=== PATIENT | female | born 1980 | race African-American/Black ===

== ENCOUNTER 2017-10-21 10:48 | Emergency (ER) | payer OTHER ==
[2017-10-21] MEDS: KETOROLAC 30 MG INJ IV (11:10)
[2017-10-21 11:49] LABS: ADD MAN DIFF? NO
[2017-10-21 11:51] LABS: BASOPHILS % 0.6 % (0.0-2.0); EOSINOPHILS # 0.1 10^3/ul (0.0-0.5); EOSINOPHILS % 2.4 % (0.0-7.0); HEMATOCRIT 32.8 % (37.0-47.0); HEMOGLOBIN 11.8 g/dl (12.0-16.0); LYMPHOCYTES # 1.5 10^3/ul (0.8-2.9); LYMPHOCYTES % 45.9 % (15.0-51.0); MEAN CORPUSCULAR HEMOGLOBIN 32.9 pg (29.0-33.0); MEAN CORPUSCULAR VOLUME 91.4 fl (82.0-101.0); MONOCYTE # 0.2 10^3/ul (0.3-0.9); MONOCYTES % 5.2 % (0.0-11.0); NEUTROPHIL # 1.5 10^3/ul (1.6-7.5); NEUTROPHILS % 45.9 % (39.0-77.0); PLATELET COUNT 217 10^3/UL (140-415); RED BLOOD COUNT 3.59 10^6/ul (4.20-5.40); RED CELL DISTRIBUTION WIDTH 11.9 % (11.5-14.5)
[2017-10-21 11:51] LABS: WHITE BLOOD COUNT 3.3 10^3/ul (4.8-10.8)
[2017-10-21 11:59] LABS: ADD UMIC YES; UR ASCORBIC ACID NEGATIVE (NEGATIVE); UR BILIRUBIN (Dip) NEGATIVE (NEGATIVE); UR BLOOD (Dip) 3+ mg/dL (NEGATIVE); UR CLARITY SLIGHTLY CLOUDY (CLEAR); UR COLOR YELLOW (YELLOW); UR GLUCOSE (Dip) NEGATIVE (NEGATIVE); UR KETONES (Dip) NEGATIVE (NEGATIVE); UR LEUKOCYTE ESTERASE (Dip) NEGATIVE Leu/ul (NEGATIVE); UR MUCUS FEW /HPF (NONE SEEN); UR NITRITE (Dip) NEGATIVE (NEGATIVE); UR RBC 2 /HPF (0-5); UR SPECIFIC GRAVITY (Dip) 1.015 (1.003-1.030); UR SQUAMOUS EPITHELIAL CELL FEW /HPF (FEW); UR TOTAL PROTEIN (Dip) NEGATIVE (NEGATIVE); UR UROBILINOGEN (Dip) NEGATIVE (NEGATIVE); UR WBC 1 /HPF (0-5)
[2017-10-21 12:11] LABS: ALANINE AMINOTRANSFERASE 39 IU/L (13-69); ALBUMIN 4.3 g/dl (3.3-4.9); ALBUMIN/GLOBULIN RATIO 1.26; ALKALINE PHOSPHATASE 75 IU/L (42-121); ANION GAP 16 (8-16); ASPARTATE AMINO TRANSFERASE 28 IU/L (15-46); BILIRUBIN,INDIRECT 0.3 mg/dl (0-1.1); BILIRUBIN,TOTAL 0.3 mg/dl (0.2-1.3); BLOOD UREA NITROGEN 7 mg/dl (7-20); CARBON DIOXIDE 26 mmol/L (21-31); CHLORIDE 108 mmol/L (97-110); CREATININE 0.68 mg/dl (0.44-1.00); GLUCOSE 75 mg/dl (70-220); LIPASE 50 U/L (23-300); POTASSIUM 3.9 mmol/L (3.5-5.1); SODIUM 146 mmol/L (135-144); TOTAL PROTEIN 7.7 g/dl (6.1-8.1)
== END 2017-10-21 12:55 | disposition home or self-care (01) ==
LOC: FTE 10:48
DX: N93.9 Abnormal uterine and vaginal bleeding, unspecified (principal); J45.909 Unspecified asthma, uncomplicated; Z79.84 Long term (current) use of oral hypoglycemic drugs
CPT/HCPCS: 36415; 76830; 76856; 80053; 81001; 81025; 83690; 85025; 96374; 99285-25

== ENCOUNTER 2018-06-08 17:53 | Emergency (ER) | payer OTHER ==
[2018-06-08] MEDS: TETRACAINE 0.5% 4 ML OPH BOTH EYES (19:21)
== END 2018-06-08 19:27 | disposition home or self-care (01) ==
LOC: FTE 17:53
DX: H57.89 Other specified disorders of eye and adnexa (principal); J45.909 Unspecified asthma, uncomplicated; Z79.84 Long term (current) use of oral hypoglycemic drugs
CPT/HCPCS: 99283; Z7502

== ENCOUNTER 2018-06-09 01:01 | Emergency (ER) | payer OTHER ==
[2018-06-09] MEDS: IBUPROFEN 800 MG TAB PO (01:14)
[2018-06-09] MEDS: FLUORESCEIN STRIP BOTH EYES (01:17)
[2018-06-09] MEDS: TETRACAINE 0.5% 4 ML OPH BOTH EYES (01:17)
== END 2018-06-09 01:32 | disposition home or self-care (01) ==
LOC: FTE 01:01
DX: H16.001 Unspecified corneal ulcer, right eye (principal); J45.909 Unspecified asthma, uncomplicated; E11.9 Type 2 diabetes mellitus without complications; Z79.84 Long term (current) use of oral hypoglycemic drugs
CPT/HCPCS: 99283; Z7502

== ENCOUNTER 2019-02-28 18:06 | Emergency (ER) | payer OTHER ==
[2019-02-28] MEDS: SOD CHLORIDE 0.9% 1,000 ML IV (19:45)
[2019-02-28] MEDS: morphine 2 MG INJ IV (19:45)
[2019-02-28] MEDS: ONDANSETRON 4 MG INJ IV (19:45)
[2019-02-28] MEDS: KETOROLAC 15 MG INJ IV (19:52)
[2019-02-28 20:03] LABS: ADD MAN DIFF? NO
[2019-02-28 20:12] LABS: ADD UMIC NO; UR ASCORBIC ACID NEGATIVE (NEGATIVE); UR BILIRUBIN (Dip) NEGATIVE (NEGATIVE); UR BLOOD (Dip) NEGATIVE (NEGATIVE); UR CLARITY CLEAR (CLEAR); UR COLOR STRAW (YELLOW); UR GLUCOSE (Dip) NEGATIVE (NEGATIVE); UR KETONES (Dip) NEGATIVE (NEGATIVE); UR LEUKOCYTE ESTERASE (Dip) NEGATIVE Leu/ul (NEGATIVE); UR NITRITE (Dip) NEGATIVE (NEGATIVE); UR SPECIFIC GRAVITY (Dip) 1.006 (1.003-1.030); UR TOTAL PROTEIN (Dip) NEGATIVE (NEGATIVE); UR UROBILINOGEN (Dip) NEGATIVE (NEGATIVE)
[2019-02-28 20:15] LABS: BASOPHILS % 0.4 % (0.0-2.0); EOSINOPHILS # 0.1 10^3/ul (0.0-0.5); EOSINOPHILS % 1.8 % (0.0-7.0); HEMATOCRIT 32.7 % (37.0-47.0); HEMOGLOBIN 11.4 g/dl (12.0-16.0); LYMPHOCYTES # 2.3 10^3/ul (0.8-2.9); LYMPHOCYTES % 44.2 % (15.0-51.0); MEAN CORPUSCULAR HEMOGLOBIN 32.5 pg (29.0-33.0); MEAN CORPUSCULAR HGB CONC 34.9 g/dl (32.0-37.0); MEAN CORPUSCULAR VOLUME 93.2 fl (82.0-101.0); MEAN PLATELET VOLUME 10.3 fl (7.4-10.4); MONOCYTE # 0.3 10^3/ul (0.3-0.9); MONOCYTES % 5.7 % (0.0-11.0); NEUTROPHIL # 2.5 10^3/ul (1.6-7.5); NEUTROPHILS % 47.7 % (39.0-77.0); PLATELET COUNT 247 10^3/UL (140-415); RED BLOOD COUNT 3.51 10^6/ul (4.20-5.40); RED CELL DISTRIBUTION WIDTH 12.9 % (11.5-14.5)
[2019-02-28 20:15] LABS: WHITE BLOOD COUNT 5.1 10^3/ul (4.8-10.8)
[2019-02-28 20:32] LABS: ANION GAP 7 (5-13); BLOOD UREA NITROGEN 11 mg/dl (7-20); CALCIUM 9.5 mg/dl (8.4-10.2); CARBON DIOXIDE 25 mmol/L (21-31); CHLORIDE 107 mmol/L (97-110); CREATININE 0.73 mg/dl (0.44-1.00); Estimated GFR > 60 mL/min (>60); GLUCOSE 83 mg/dl (70-220); LIPASE 120 U/L (23-300); POTASSIUM 3.8 mmol/L (3.5-5.1); SODIUM 139 mmol/L (135-144)
== END 2019-02-28 21:51 | disposition home or self-care (01) ==
LOC: FTE 18:06
DX: O26.891 Other specified pregnancy related conditions, first trimester (principal); R10.2 Pelvic and perineal pain; Z3A.00 Weeks of gestation of pregnancy not specified
CPT/HCPCS: 36415; 76856; 80048; 81003; 81025; 83690; 85025; 96361; 96374; 96375; 99285-25